=== PATIENT | female | born 1960 | race American Indian/Alaskan Native ===

== ENCOUNTER 2017-09-10 17:34 | Emergency (ER) | payer BC ==
[~2017-09-10] VITALS: Ht 160 cm; Wt 97.5 kg
[2017-09-10] MEDS ORDERED: SYNTHROID50 MCG PO (17:46)
[2017-09-10] MEDS ORDERED: LISINOPRIL20 MG PO (17:46)
== END 2017-09-10 21:37 | disposition home or self-care (01) ==
LOC: ER 17:34
DX: B34.9 Viral infection, unspecified (principal); K29.70 Gastritis, unspecified, without bleeding; E86.0 Dehydration; E87.6 Hypokalemia